=== PATIENT | male | born 1940 | race African-American/Black ===

== ENCOUNTER 2017-11-27 08:33 | Emergency (ER) | payer OTHER ==
[~2017-11-27] VITALS: Ht 188 cm; Wt 117.9 kg
[2017-11-27] MEDS ORDERED: SODIUM CHLORIDE 0.9% 1,000 ML IV ONE ×2 (09:13)
[2017-11-27 09:47] LABS: Basophils # (auto) 0 uL; Basophils % (auto) 0.3 % (0.0-2.0); Eosinophils # (auto) 0.1 uL; Eosinophils % (auto) 1.8 % (0.0-7.0); Hematocrit 41.1 % (41.0-53.0); Hemoglobin 13.5 g/dL (13.5-17.5); Lymphocytes # (auto) 2.1 uL; Mean Corpuscular Hemoglobin 31.6 pg (28.0-32.0); Mean Corpuscular Hgb Conc. 32.8 g/dL (32.0-36.0); Mean Corpuscular Volume 96.5 fL (80.0-100.0); Monocytes # (auto) 0.8 uL; Monocytes % (auto) 10.9 % (0.0-12.0); Nucleated Red Blood Cells % 0.1 %; Platelet Count (auto) 162 10^3/uL (140-450); Red Blood Cells 4.26 10^6/uL (4.5-5.90); White Blood Cell 7.1 10^3/uL (4.4-10.8)
[2017-11-27 10:00] LABS: INR 0.98 (0.9-1.15); Partial Thromboplastin Time 23.6 sec (22.64-33.71); Prothrombin Time 10.7 sec (9.37-12.3)
[2017-11-27 10:02] LABS: Albumin 3.2 g/dL (3.4-5.0); Calcium 9.6 mg/dL (8.5-10.1); Potassium 4.2 mmol/L (3.5-5.1)
[2017-11-27 10:06] LABS: BUN/Creatinine Ratio 19.6
[2017-11-27 10:07] LABS: Bilirubin, Total 0.5 mg/dL (0.2-1.0)
[2017-11-27 10:37] LABS: Urine Bacteria NONE SEEN /hpf (None Seen); Urine Blood 1+ /uL (Negative); Urine Specific Gravity 1.016 (1.001-1.035); Urine WBC 2 /hpf (0 - 3)
[2017-11-27] MEDS ORDERED: cloNIDine HCL 0.1 MG TAB ONE (11:38)
[2017-11-27] MEDS ORDERED: cloNIDine HCL 0.1 MG TAB PO ONE (11:45)
[2017-11-27 14:29] VITALS: BP 174/77
== END 2017-11-27 14:38 | disposition short-term general hospital (02) ==
LOC: ER 08:33 → EDBD 08:33 → ER 14:38
DX: G45.9 Transient cerebral ischemic attack, unspecified (principal); E11.621 Type 2 diabetes mellitus with foot ulcer; I10 Essential (primary) hypertension; E78.5 Hyperlipidemia, unspecified; Z88.8 Allergy status to other drugs, medicaments and biological substances; Z90.49 Acquired absence of other specified parts of digestive tract
CPT/HCPCS: 36415; 51702; 70450; 71045; 80053; 81001; 83605; 83880; 84484; 85025; 85610; 85730; 87040; 93005; 96360; 99285; J7030